=== PATIENT | male | born 1950 | race Caucasian/White ===

== ENCOUNTER 2021-06-10 13:14 | Outpatient (REF) | payer SELFPAY ==
--- NOTE | 2021-06-10 13:28 | MHC.AU.P13 ---
Hearing Instrument Problem Date of Visit: 06/10/21 Right Ear: Visual Education Teacher: O[employer]on Model: OPN S 2 MINI RITE T Serial Number: [id number] Repair Warranty: 03/31/2023 Loss and Damage Warranty: 03/31/2023 Battery Size: 312 Color: CHROMA BEIGE Second Shift Supervisor: 2 POWER 105 Type of Mold: RITE MOLD POWER 105 Type of Wax Guard: PRO WAX Dispensed By: [facility] Date of Fittin04/05/2020 Left Ear: Visual Education Teacher: Oticon Model: OPN S 2 MINI RITE T Serial Number: [id number] Repair Warranty: 03/31/2023 Loss and Damage Warranty: 03/31/2023 Battery Size: 312 Color: CHROMA BEIGE Second Shift Supervisor: 2 POWER 105 Type of Mold: RITE MOLD POWER 105 Type of Wax Guard: PRO WAX Dispensed By: [facility] Date of Fittin04/05/2020 Follow-Up Summary: Left aid brought in - patient stated weak. Cleaned and changed wax guard - now amplifying clearly. Recommendations: Recommendations: Hearing instrument maintenance in 6 months, or sooner if needed. Diagnosis Code(s): Primary Diagnosis: H90.3 Bilateral Sensorineural Hearing Loss Signature: Provider: ALLYSON Fitzpatrick-HIS
== END 2021-06-10 13:15 | disposition home or self-care (01) ==
LOC: HO.HAP 13:14
PROVIDERS: Visit Provider Internal Medicine
DX: Z46.1 Encounter for fitting and adjustment of hearing aid (principal); H90.3 Sensorineural hearing loss, bilateral
CPT/HCPCS: V5267

== ENCOUNTER 2021-06-12 14:56 | Outpatient (REF) | payer MEDICARE, SELFPAY ==
[2021-06-12 16:19] LABS: Appearance Urine CLOUDY; Color Urine YELLOW; Glucose Urine UA NEG (NEG); Leukocyte Esterase Urine 3+ (NEG); Nitrite Urine NEG (NEG); Specific Gravity - Urine 1.015 (1.005-1.025); Urine Blood TRACE (NEG); Urine Ketones NEG (NEG); Urine Protein NEG (NEG-TRACE)
[2021-06-12 16:32] LABS: Bacteria Urine 3+ /LPF; Mucus Urine TRACE /LPF; Squamous Epithelial Cell Urine 1+ /LPF; WBC Urine 30-49 /HPF (0-4)
[2021-06-12 16:34] LABS: RBC Urine 0-2 /HPF (0)
== END 2021-06-12 14:57 | disposition home or self-care (01) ==
LOC: HO.LAB 14:56
PROVIDERS: Visit Provider Urology
DX: N40.1 Benign prostatic hyperplasia with lower urinary tract symptoms (principal)
CPT/HCPCS: 81001; 87086; 87147

== ENCOUNTER 2021-06-13 14:07 | Outpatient (REF) | payer MEDICARE, MEDICAID, OTHER, SELFPAY | END 2021-06-13 14:08 | disposition home or self-care (01) | LOC: HO.HAP 14:07 | PROVIDERS: Visit Provider Internal Medicine | DX: Z13.89 Encounter for screening for other disorder (principal) ==

== ENCOUNTER 2021-07-09 12:29 | Outpatient (REF) | payer MEDICARE, MEDICAID, SELFPAY ==
--- NOTE | 2021-07-09 13:31 | MHC.AU.HFU ---
Hearing Instrument Follow-Up- Binaural Date of Visit: 07/09/21 Right Ear:Senior Ui Ux Designer: Oticon Model: OPN S 2 MINI RITE T Serial Number: [id number] (New serial number with replacement under warranty 07/09/2021) Repair Warranty: 03/31/2023 Loss and Damage Warranty: 03/31/2023 Battery Size: 312 Color: CHROMA BEIGE Etl Data Architect: 2 POWER 105 Type of Mold: RITE MOLD POWER 105 Type of Wax Guard: PRO WAX Dispensed By: [facility] Date of Fittin04/05/2020 Left Ear:Senior Ui Ux Designer: O[employer]on Model: OPN S 2 MINI RITE T Serial Number: [id number] Repair Warranty: 03/31/2023 Loss and Damage Warranty: 03/31/2023 Battery Size: 312 Color: CHROMA BEIGE Etl Data Architect: 2 POWER 105 Type of Mold: RITE MOLD POWER 105 Type of Wax Guard: PRO WAX Dispensed By: [facility] Date of Fittin04/05/2020 Follow-Up Summary: Fit the under warranty replacement right aid and paired with left aid. Recommendations:Hearing instrument follow-up or maintenance as needed. Please contact our clinic with any questions or concerns. Diagnosis Code(s): Primary Diagnosis: H90.3 Bilateral Sensorineural Hearing Loss Services Performed: DING Non-Quantity Charges: HANC: NonBillable Event Signature: Provider: Gurmeet Kelly, CCC-A
== END 2021-07-09 12:30 | disposition home or self-care (01) ==
LOC: HO.HAP 12:29
PROVIDERS: Visit Provider Internal Medicine
DX: Z13.89 Encounter for screening for other disorder (principal)

== ENCOUNTER 2022-11-19 13:21 | Outpatient (REF) | payer MEDICARE, MEDICAID, SELFPAY | END 2022-11-19 13:22 | disposition home or self-care (01) | LOC: HO.HAP 13:21 | PROVIDERS: Visit Provider Internal Medicine | DX: Z13.89 Encounter for screening for other disorder (principal) ==

== ENCOUNTER 2023-01-05 13:14 | Outpatient (REF) | payer SELFPAY | END 2023-01-05 13:15 | disposition home or self-care (01) | LOC: HO.HAP 13:14 | PROVIDERS: Visit Provider Internal Medicine | DX: Z13.89 Encounter for screening for other disorder (principal) ==

== ENCOUNTER 2023-08-24 07:56 | Outpatient (REF) | payer SELFPAY ==
--- NOTE | 2023-08-24 09:40 | MHC.AU.HA3 ---
Hearing Instrument Follow-Up- Binaural Date of Visit: 08/24/23 Right Ear: Model Tim, Color, Serial Number: [id number] (New serial number with replacement under warranty 07/09/2021) Circulation Director Repair Warranty: 03/31/2023 Circulation Director Loss and Damage Warranty: 03/31/2023 [facility] Service Plan: Battery Size: 312 Pharmaceutical Sales Representative/Slim Tube: 2 POWER 105 Earmold/Dome/CShell/SlimTip:RITE MOLD POWER 105 Type of Wax Guard: PRO WAX Dispensed By: [facility] Date of Fittin04/05/2020 Left Ear: Model Tim, Color, Serial Number: [id number] Circulation Director Repair Warranty: 03/31/2023 Circulation Director Loss and Damage Warranty: 03/31/2023 [facility] Service Plan: Battery Size: 312 Pharmaceutical Sales Representative/Slim Tube: 2 POWER 105 Earmold/Dome/CShell/SlimTip: RITE MOLD POWER 105 Type of Wax Guard: PRO WAX Dispensed By: [facility] Date of Fittin04/05/2020 Follow-Up Summary: Reports that his Connect Clip is not holding a charge. As it is out of warranty and not otherwise repairable, recommended new connect clip. He does not have a phone that is capable of direct streaming with these hearing aids. Reports he is no longer working, [facility] previously supported his Connect Clip. Quoted $300 for new Connect Clip, he would like to proceed. Recommendations: Recommendations: Patient will be contacted when materials have arrived. Diagnosis Code(s): Primary Diagnosis: H90.3 Bilateral Sensorineural Hearing Loss Signature: Provider: Marika Chris, [facility]
== END 2023-08-24 07:57 | disposition home or self-care (01) ==
LOC: HO.HAP 07:56
PROVIDERS: Visit Provider Internal Medicine
DX: Z13.89 Encounter for screening for other disorder (principal)

== ENCOUNTER 2023-09-25 09:37 | Outpatient (REF) | payer SELFPAY ==
--- NOTE | 2023-09-25 15:35 | MHC.AU.HA3 ---
Hearing Instrument Follow-Up- Binaural Date of Visit: 09/25/23 Right Ear: Model Tim, Color, Serial Number: [id number] (New serial number with replacement under warranty 07/09/2021) Truck Driver Helper Repair Warranty: 03/31/2023 Truck Driver Helper Loss and Damage Warranty: 03/31/2023 [facility] Service Plan: Battery Size: 312 Retail Assistant Manager/Slim Tube: 2 POWER 105 Earmold/Dome/CShell/SlimTip:RITE MOLD POWER 105 Type of Wax Guard: PRO WAX Dispensed By: [facility] Date of Fittin04/05/2020 Left Ear: Model Tim, Color, Serial Number: [id number] Truck Driver Helper Repair Warranty: 03/31/2023 Truck Driver Helper Loss and Damage Warranty: 03/31/2023 [facility] Service Plan: Battery Size: 312 Retail Assistant Manager/Slim Tube: 2 POWER 105 Earmold/Dome/CShell/SlimTip: RITE MOLD POWER 105 Type of Wax Guard: PRO WAX Dispensed By: [facility] Date of Fittin04/05/2020 Follow-Up Summary: 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 Forget his old connect clip in Genie and from his phone. Paired connect clip with his hearing aids and Android phone. Pt inquired about [employer]. Discussed. Sending [employer] referral at pt request. After patient departed, Rosalinda came from the front line supervisor and stated that he left the connect clip behind because his payment declined and said he would be back to sort it out. His connect clip is now stored on the hearing aid shelf. Recommendations: Recommendations: Please contact our clinic with any questions or concerns. Diagnosis Code(s): Primary Diagnosis: H90.3 Bilateral Sensorineural Hearing Loss Signature: Provider: Marika Chris, [facility]
== END 2023-09-25 09:38 | disposition home or self-care (01) ==
LOC: HO.HAP 09:37
PROVIDERS: Visit Provider Internal Medicine
DX: Z13.89 Encounter for screening for other disorder (principal)